=== PATIENT | female | born 1970 | race Caucasian/White ===

== ENCOUNTER → 2024-10-05 09:56 | Outpatient (REF) | payer BC, SELFPAY | LOC: WDC 09:56 | PROVIDERS: ATTENDING PHYSICIAN Obstetrics & Gynecology Gynecology; FAMILY PHYSICIAN Family Medicine | DX: N63.24 Unspecified lump in the left breast, lower inner quadrant (principal) | CPT/HCPCS: 76642; 77062; 77066 ==